=== PATIENT | female | born 1980 | race Caucasian/White ===

== ENCOUNTER 2018-01-28 21:16 | Emergency (ER) | payer MEDICAID ==
[~2018-01-28] VITALS: Ht 162.5 cm; Wt 142.9 kg
[2018-01-28] MEDS ORDERED: LYRICA75 M1 PO (21:31)
[2018-01-28] MEDS ORDERED: OXYCONTIN10 M1 PO (21:31)
[2018-01-28] MEDS ORDERED: ADVAIR 250/501 EA INH (21:32)
[2018-01-28] MEDS ORDERED: Percocet 325 MG1 TAB PO (21:32)
[2018-01-28] MEDS ORDERED: LISINOPRIL-HCT1 EACH PO (21:32)
[2018-01-28] MEDS ORDERED: VENLAFAXINE HYD75 M3 PO (21:33)
[2018-01-28] MEDS ORDERED: POTASSIUM CHLO20 ME4 PO (21:33)
[2018-01-28] MEDS ORDERED: BUMETANIDE1 MG PO (21:33)
[2018-01-28] MEDS ORDERED: WARFARIN SODIUM4 MG PO (21:33)
[2018-01-28] MEDS ORDERED: RA SENNA PLUS1 EACH PO (21:34)
[2018-01-28] MEDS ORDERED: WARFARIN SOD5 MG PO (21:34)
[2018-01-28] MEDS ORDERED: COLACE100 MG PO (21:35)
[2018-01-28] MEDS ORDERED: AMOXICILLIN500 M2 PO (22:23)
== END 2018-01-28 23:19 | disposition home or self-care (01) ==
LOC: ED 21:16
DX: M87.17 Osteonecrosis due to drugs, ankle, foot and toes (principal); T38.0X5A Adverse effect of glucocorticoids and synthetic analogues, initial encounter; G89.29 Other chronic pain; M79.671 Pain in right foot; Z79.01 Long term (current) use of anticoagulants; Z79.899 Other long term (current) drug therapy; Z88.8 Allergy status to other drugs, medicaments and biological substances; Y92.9 Unspecified place or not applicable